=== PATIENT | female | born 1970 | race Caucasian/White ===

== ENCOUNTER 2018-08-27 16:28 | Emergency (ER) | payer MEDICAID, SELFPAY ==
--- NOTE | 2018-08-27 16:32 | W.ED.GENAD ---
Discharge Plan Disposition Patient Disposition: HOME Condition: Stable Discharge Details Chief Complaint: Chest Pain Clinical Impression: Chest pain Primary Care Provider: Saadia Santana V ED Provider: Srini Jones Home Meds and New Rx's Prescriptions: No Action aspirin [Children's Aspirin] 81 MG tablet,chewable 81 mg PO DAILY RF: 0 ibuprofen 800 MG tablet 800 mg PO TID PRNQty: 20 RF: 0 Discharge Instructions Instructions: Chest Pain (ED), Hypokalemia (ED) Additional Instructions: your blood work was normal other than your potassium being low. Try to increase your dietary intake of potassium Follow up with your primary care provider within a week. Have your potassium rechecked at that time and also discuss having a stress test if you feel your pain is worsening or you have difficulty breathing return to the emergency department Medical Decision Making 47 yo female who denies hx of smoking or prior medical problems, comes in with 3 days of constant chest pain. She describes it as a burning and sometimes a pressure, no apin with exertion or radiation of pain. NO sob, n/v, diarphoresis. She states laying flat makes it feel better. She has also had a cough recently. She does appear anxious on exam which could be contributing to the symptoms. Her heart score is 1, will obtain troponin. She is wells low and perc negative so doubt PE at this time pts labs show K of 2.9 otherwise unremarkable, xray unremarkable. Given 3 days of pain do not feel repeat troponin indicated. She is laughing and states no pain now. Will d/c and advised f/u with pcp return precautions given Differential Diagnosis nstemi, ptx, pna, gerd, anxiety Imaging Data Radiologic Study: Attestation: I personally reviewed and interpreted this imaging study as follows: Imaging: X-Ray Radiologist's impression: no acute findings Lab Data Lab results reviewed: Yes I reviewed the patient's lab results. ECG Data Attestation: I personally reviewed and interpreted this ECG (s) as follows: Prior ECG tracings: available for review Interpretation: sinus rhythm, rate of 85, pr 148, no acute st t wave ischemic changes HPI General Mode of arrival: ambulatory. Date/Time Provider Initiated Documentation: 08/27/18 16:30. Limitations to Documentation: no limitations. Information obtained by: patient. History of Present Illness 47 year old F presents to the emergency department with the chief complaint of chest pain, described as moderate, Quality is described as burning, and is localized to the chest. Patient reports no radiation. Patient started experiencing this day(s) (3) and it has been constant. No relieving factors improve symptom(s), Other factors that worsen symptoms (laying flat) . Patient notes cough. Patient did receive the following treatments prior to arrival, none Related Data Home Medications Medication Instructions Recorded Confirmed aspirin [Children's Aspirin] 81 mg PO DAILY 11/06/12 08/27/18 ibuprofen 800 mg PO TID PRN #20 tablet 07/04/13 08/27/18 Previous Rx's Medication Instructions Recorded ibuprofen 800 mg PO TID PRN #20 tablet 07/04/13 Allergies Allergy/AdvReac Type Severity Reaction Status Date / Time No Known Allergies Allergy Unverified 08/27/18 16:40 Review of Systems Review of Systems All systems reviewed & are unremarkable except as noted in HPI and below Constitutional Denies chills and Denies fever(s) Cardiovascular Denies dyspnea Respiratory Denies cough and Denies dyspnea Gastrointestinal Denies abdominal pain, Denies nausea and Denies vomiting Musculoskeletal Denies joint swelling Integumentary/Breasts Denies rash Endocrine Denies heat intolerance FOR[facility]LY [facility] Medical History Hyperlipidemia (Acute) Surgical History History of adenectomy (Acute) Social History Smoking/Tobacco Use Status: Never Drug use: Never Substance use type: does not use Do you feel safe at home: Yes Do you feel safe in your relationship?: Yes Exam Const General: anxious Orientation: alert HENNH Head: normal to inspection Ears: external ears normal General nose exam: external nose normal Mouth: moist mucous membranes Eyes General: appearance normal, both eyes and all related structures Neck Neck: normal visual inspection Resp Effort & Inspection: normal respiratory effort and able to speak in complete sentences Cardio Rate: regular rate Skin General skin exam: no rashes or lesions noted Neuro General: alert and oriented x3 Extrem General: normal to inspection Psych Mental Status: mental status grossly normal
[2018-08-27 16:35] VITALS: BP 151/71; PULSE 87; RESP 12; TEMP 37.3; O2SAT 95
[2018-08-27 16:40] VITALS: RESP 20
[2018-08-27 16:50] LABS: Abs Immature Grans 0.03 k/cumm (0.0-0.09); Absolute Basophil Count 0.04 k/cumm (0.0-0.2); Absolute Eosinophil Count 0.17 k/cumm (0.0-0.7); Absolute Lymphocyte Count 2.73 k/cumm (1.2-3.4); Absolute Monocyte Count 0.78 k/cumm (0.11-0.7); Absolute Neutrophil Count 7.42 k/cumm (1.2-6.7); Basophils % 0.4; Eosinophils % 1.5; HCT 39.2 % (36.0-46.0); HGB 13.2 g/dL (12.0-15.5); Immature Grans % 0.3; Lymphocytes % 24.4; Mean Corp. HGB Concentration 33.7 g/dL (32.0-36.0); Mean Corpuscular Hemoglobin 28.8 pg (27.0-33.0); Mean Corpuscular Volume 85.6 fL (80-95); Mean Platelet Volume 9.8 fL (8.0-11.0); Neutrophils % 66.4; Platelet Count 418 x1000/uL (130-400); RBC 4.58 m/cumm (4.00-5.20); RBC Distribution Width 12.1 % (11.7-14.6); White Blood Cell Count 11.17 k/cumm (4.4-10.8)
--- NOTE | 2018-08-27 16:56 | ED.GENADUL_ITS ---
Discharge Plan Disposition Patient Disposition: HOME Condition: Stable Discharge Details Chief Complaint: Chest Pain Clinical Impression: Chest pain Primary Care Provider: Saadia Santana V ED Provider: Srini Jones Home Meds and New Rx's Prescriptions: No Action aspirin [Children's Aspirin] 81 MG tablet,chewable 81 mg PO DAILY RF: 0 ibuprofen 800 MG tablet 800 mg PO TID PRNQty: 20 RF: 0 Discharge Instructions Instructions: Chest Pain (ED), Hypokalemia (ED) Additional Instructions: your blood work was normal other than your potassium being low. Try to increase your dietary intake of potassium Follow up with your primary care provider within a week. Have your potassium rechecked at that time and also discuss having a stress test if you feel your pain is worsening or you have difficulty breathing return to the emergency department Medical Decision Making 47 yo female who denies hx of smoking or prior medical problems, comes in with 3 days of constant chest pain. She describes it as a burning and sometimes a pressure, no apin with exertion or radiation of pain. NO sob, n/v, diarphoresis. She states laying flat makes it feel better. She has also had a cough recently. She does appear anxious on exam which could be contributing to the symptoms. Her heart score is 1, will obtain troponin. She is wells low and perc negative so doubt PE at this time pts labs show K of 2.9 otherwise unremarkable, xray unremarkable. Given 3 days of pain do not feel repeat troponin indicated. She is laughing and states no pain now. Will d/c and advised f/u with pcp return precautions given Differential Diagnosis nstemi, ptx, pna, gerd, anxiety Imaging Data Radiologic Study: Attestation: I personally reviewed and interpreted this imaging study as follows: Imaging: X-Ray Radiologist's impression: no acute findings Lab Data Lab results reviewed: Yes I reviewed the patient's lab results. ECG Data Attestation: I personally reviewed and interpreted this ECG (s) as follows: Prior ECG tracings: available for review Interpretation: sinus rhythm, rate of 85, pr 148, no acute st t wave ischemic ch anges HPI General Mode of arrival: ambulatory . Date/Time Provider Initiated Documentation: 08/27/18 16:30 . Limitations to Documentation: no limitations . Information obtained by: patient . History of Present Illness 47 year old F presents to the emergency department with the chief complaint of chest pain, described as moderate, Quality is described as burning, and is localized to the chest. Patient reports no radiation. Patient started experiencing this day(s) (3) and it has been constant. No relieving factors improve symptom(s), Other factors that worsen symptoms (laying flat) . Patient notes cough. Patient did receive the following treatments prior to arrival, none Related Data Home Medications Medication Instructions Recorded Confirmed aspirin [Children's Aspirin] 81 mg PO DAILY 11/06/12 08/27/18 ibuprofen 800 mg PO TID PRN #20 tablet 07/04/13 08/27/18 Previous Rx's Medication Instructions Recorded ibuprofen 800 mg PO TID PRN #20 tablet 07/04/13 Allergies Allergy/AdvReac Type Severity Reaction Status Date / Time No Known Allergies Allergy Unverified 08/27/18 16:40 Review of Systems Review of Systems All systems reviewed & are unremarkable except as noted in HPI and below Constitutional Denies chills and Denies fever(s) Cardiovascular Denies dyspnea Respiratory Denies cough and Denies dyspnea Gastrointestinal Denies abdominal pain, Denies nausea and Denies vomiting Musculoskeletal Denies joint swelling Integumentary/Breasts Denies rash Endocrine Denies heat intolerance FOR[facility]LY [facility] Medical History Hyperlipidemia (Acute) Surgical History History of adenectomy (Acute) Social History Smoking/Tobacco Use Status: Never Drug use: Never Substance use type: does not use Do you feel safe at home: Yes Do you feel safe in your relationship?: Yes Exam Const General: anxious Orientation: alert HENMT Head: normal to inspection Ears: external ears normal General nose exam: external nose normal Mouth: moist mucous membranes Eyes General: appearance normal, both eyes and all related structures Neck Neck: normal visual inspection Resp Effort & Inspection: normal respiratory effort and able to speak in complete sentences Cardio Rate: regular rate Skin General skin exam: no rashes or lesions noted Neuro General: alert and oriented x3 Extrem General: normal to inspection Psych Mental Status: mental status grossly normal
[2018-08-27 17:00] LABS: PTT Activated 21.1 sec (21.0-31.4); Prothrombin Time 10.2 sec (9.3-11.0)
[2018-08-27 17:02] LABS: ALT 25 U/L (12-78); AST 17 U/L (15-37); Albumin 3.5 g/dL (3.4-5.0); Alkaline Phosphatase 100 U/L (46-116); BUN 11 mg/dL (7-18); Bilirubin, Total 0.4 mg/dL (0.2-1.0); CREATININE 0.61 mg/dL (0.55-1.02); Calcium 8.7 mg/dL (8.5-10.1); Chloride 100 mmol/L (98-107); Glucose 106 mg/dL (70-100); Lipase 105 U/L (73-393); Magnesium 1.9 mg/dL (1.8-2.4); Sodium 136 mmol/L (136-145); Total Protein 8.3 g/dL (6.4-8.2)
[2018-08-27] MEDS: LORazepam 2 MG/ML VIAL 0.5 MG IVP (17:03)
--- NOTE | 2018-08-27 17:09 | DI.RAD_ITS ---
SYMPTOM/DIAGNOSIS: CHEST PAIN PA AND LATERAL CHEST: Comparison is made with 07/04/13. The heart size is within normal limits. The aorta is mildly tortuous. Leads overlie the chest. The lungs appear clear. IMPRESSION: No acute abnormality.
[2018-08-27 17:11] LABS: Troponin I < 0.02 ng/mL (0.00-0.06)
[2018-08-27 17:13] LABS: Potassium 2.9 mmol/L (3.5-5.1)
[2018-08-27] MEDS: Potassium Chloride 20 MEQ TABCR 40 MEQ PO (17:17)
[2018-08-27 17:23] VITALS: PULSE 84; RESP 18; O2SAT 97
--- NOTE | 2018-08-27 17:27 | DI.VRAD_ITS ---
EXAM: XR Chest, 2 Views EXAM DATE/TIME: 08/27/2018 4:50 PM CLINICAL HISTORY: 47 years old, female; Pain; Chest pain; On breathing; Patient HX: Chest pain on left. TECHNIQUE: Imaging protocol: XR of the chest, 2 views. COMPARISON: CR CHEST 2 VIEWS PA,LAT 07/04/2013 3:59 AM FINDINGS: Lungs: Unremarkable. No consolidation. Pleural space: Unremarkable. No pleural effusion. No pneumothorax. Heart/Mediastinum: Unremarkable. No cardiomegaly. Bones/joints: Negative for acute skeletal pathology. IMPRESSION: Negative for acute thoracic pathology. Dictated and Authenticated by: Himanshu David MD. Ordering:JESS Milligan MD
[2018-08-27 17:33] LABS: Diff Comment Diff Reviewed; RBC Morphology Normal
== END 2018-08-27 18:14 | disposition home or self-care (01) ==
PROVIDERS: Emergency Provider Emergency Medicine; PCP Family Medicine
DX: R07.9 Chest pain, unspecified (principal); Z87.891 Personal history of nicotine dependence
CPT/HCPCS: 36415; 80053; 80076; 83690; 93005; 96374; 99285; 71046; 83735; 84484; 85025; 85610; 85730; 93010; J2060; J3490

== ENCOUNTER 2020-05-03 16:14 | Emergency (ER) | payer MEDICAID, SELFPAY ==
[2020-05-03] VITALS (14 sets, daily range): BP systolic 97–140; BP diastolic 51–81; PULSE 83–122; RESP 17; TEMP 36.6–38.1; O2SAT 87–100
--- NOTE | 2020-05-03 16:44 | W.ED.GENAD ---
Discharge Plan Disposition Patient Disposition: HOME Condition: Stable Discharge Details Clinical Impression: Acute febrile illness Primary Care Provider: Nestor Blackwell ED Provider: Cassius Gunn Home Meds and New Rx's Prescriptions: New cephalexin [Keflex] 500 mg capsule 500 mg PO TID Qty: 18 RF: 0 Discharge Instructions Instructions: Cephalexin (By mouth), Urinary Tract Infection in Women (ED), Fever in Adults (ED), Hypokalemia (ED) Additional Instructions: Please drink plenty of clear fluids like Gatorade or Powerade in order to stay hydrated. Allow for plenty of rest over the next few days. Your urinalysis is inconclusive for urinary tract infection. You have been started on an antibiotic called Keflex. Be sure to take this antibiotic as prescribed. You have Covid test pending. Please maintain isolation at home until Covid test is resulted and negative. Please contact your primary care physician to arrange follow-up. Call your doctor tomorrow to arrange timely follow-up. Return to the ER immediately for any worsening or new concerning symptoms. Stand Alone Forms: PENDING COVID-19 TESTING Referrals: Nestor Blackwell PA [Primary Care Provider] - Discharge Data Discharge Date/Time-TO BE ENTERED AT DEPARTURE: 05/03/20 19:10 Medical Decision Making 1644??49-year-old female here with fever since last night, myalgias, fatigue. Patient is tachycardic and febrile. She appears dehydrated. No signs of focal bacterial infection on exam. Lungs are clear, she has no cough, she is saturating well and in no respiratory distress. No known exposure and low risk for Covid. Consider other etiologies including alternative viral illness, consider bacteremia and will send blood culture, consider tickborne disease she has had prior tick bites. I will check screening labs and give IV fluid bolus as well as acetaminophen IV. --Labs reviewed and leukocytosis noted. Lactate mildly elevated at 1.7. Potassium 3.2. Patient was given potassium 20 mEq orally. Mildly elevated LFTs. Tick panel pending. Covid testing pending. Blood cultures pending. Urinalysis is concerning for 20-60 WBCs, moderate bacteria, unfortunately contaminated with many epithelial cells. Patient received IV fluid bolus volume resuscitation. Heart rate significantly improved. Patient remained hemodynamically stable. On reassessment she noted continued fatigue but with stable. Consider urinary tract infection. Will attempt to obtain second urine specimen but will start Keflex. --Plan will be for outpatient follow-up with patient's PCP next week. She was encouraged to return for any worsening or new concerning symptoms. HPI General Mode of arrival: ambulatory. Date/Time Provider Initiated Documentation: 05/03/20 16:25. Limitations to Documentation: no limitations. Information obtained by: patient. 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 Patient notes flulike illness with myalgias and fever since yesterday evening. Yesterday morning she notes she felt fine. Symptoms now moderate with no modifiers. She last took ibuprofen around noon. No associated rash. No associated cough or shortness of breath. No headache. She has had some nausea and loose stool. No abdominal pain. Patient notes no recent tick bites this year but does note she has had significant tick bites last year. Related Data Home Medications Medication Instructions Recorded Confirmed cephalexin [Keflex] 500 mg PO TID #18 cap 05/03/20 Previous Rx's Medication Instructions Recorded cephalexin [Keflex] 500 mg PO TID #18 cap 05/03/20 Allergies Allergy/AdvReac Type Severity Reaction Status Date / Time No Known Allergies Allergy Unverified 08/27/18 16:40 General Stated Complaint: Fever TESFAYE: 3 Review of Systems All systems reviewed & are unremarkable except as noted in HPI and below Constitutional Constitutional: Reports body ache(s) and Reports fever(s) Respiratory Respiratory: Denies cough Integumentary/Breasts Skin/Breast: Denies rash FOR[facility]LY [facility] Medical History (Updated 05/03/20 @ 18:49 by Cassius Gunn MD) Hyperlipidemia Surgical History History of adenectomy Social History Smoking/Tobacco Use Status: Never Smoking risk assessment performed?: Yes Alcohol Intake: never Drug use: Never Substance use type: does not use Do you feel safe at home: Yes Do you feel safe in your relationship?: Yes Exam Const General: cooperative and no acute distress HENMT Mouth: mucous membranes dry Eyes Conjunctivae: normal conjunctivae Sclera: normal sclerae Neck Neck: trachea midline and supple Resp Auscultation: clear to auscultation bilaterally, no rales, no rhonchi and no wheezes Cardio Rate: tachycardic Rhythm: regular rhythm Heart Sounds: no murmurs GI Palpation: soft, not firm, no guarding, no masses, not rigid and nontender Skin General skin exam: no rashes or lesions noted Neuro General: patient alert, patient awake, patient oriented x3 and tone normal Extrem General: no edema Psych Appearance: grossly normal Mental Status: mental status grossly normal Course Vital Signs Vital signs: Vital Signs Temperature 38.1 C H 05/03/20 16:19 Pulse 122 H 05/03/20 16:19 Respiratory Rate 17 05/03/20 16:19 Blood Pressure 140/81 05/03/20 16:19 Pulse Oximetry 100 05/03/20 16:19 Temperature 38.1 C H 05/03/20 16:19 Temperature Source Temporal Artery Scan 05/03/20 16:19 Pulse 122 H 05/03/20 16:19 Respiratory Rate 17 05/03/20 16:19 Respiratory Effort Non-Labored 05/03/20 16:25 Blood Pressure 140/81 05/03/20 16:19 Blood Pressure Position Sitting 05/03/20 16:19 Pulse Oximetry 100 05/03/20 16:19 Oxygen Delivery Method Room Air 05/03/20 16:19 Oxygen Flow Rate 0 05/03/20 16:19 Pain Level 2 05/03/20 16:19 Lab/Test Results Lab/Test Results: 05/03/20 16:26 Blood Blood Culture - Pending 05/03/20 16:26 Blood Blood Culture - Pending
[2020-05-03 17:09] LABS: Abs Immature Grans 0.08 10^3/uL (0.0-0.06); Absolute Basophil Count 0.02 10^3/uL (0.0-0.2); Basophils % 0.1; HCT 36.9 % (36.0-46.0); HGB 12.1 g/dL (11.2-15.7); MCH 28.9 pg (27.0-33.0); MCHC 32.8 % (32.0-36.0); MCV 88.3 fL (80-95); MPV 10.1 fL (8.0-11.0); Nucleated RBC 0 %; Platelet Count 349 10^3/uL (130-400); RBC 4.18 10^6/uL (3.93-5.22); RDW 12.9 % (11.7-14.6); RDW-SD 41.7 fL; WBC 16.87 10^3/uL (4.4-10.8)
[2020-05-03] MEDS: ACETAMINOPHEN 1,000 MG/100 ML BTL 400 MG IVPB (17:12)
[2020-05-03 17:17] LABS: Lactate 1.7 mmol/L (0.6-1.4)
[2020-05-03 17:31] LABS: ALT 98 U/L (14-59); AST 51 U/L (15-37); Albumin 3.2 g/dL (3.4-5.0); Alkaline Phosphatase 125 U/L (46-116); Anion Gap 10.3 mmol/L (3-11); BUN 11 mg/dL (7-18); Bilirubin, Total 0.7 mg/dL (0.2-1.0); CO2 22.7 mmol/L (21.0-32.0); CREATININE 0.74 mg/dL (0.55-1.02); Calcium 8.3 mg/dL (8.5-10.1); Chloride 101 mmol/L (98-107); Glucose 111 mg/dL (74-106); Potassium 3.2 mmol/L (3.5-5.1); Sodium 134 mmol/L (136-145); Total Protein 7.9 g/dL (6.4-8.2)
[2020-05-03] MEDS: Lactated Ringers 1,000 ML 1000 ML IV (17:31)
[2020-05-03 17:39] LABS: Absolute Lymphocyte Count 1.86 10^3/uL (1.2-3.4); Absolute Monocyte Count 0.67 10^3/uL (0.1-0.8); Absolute Neutrophil Count 14.34 10^3/uL (1.2-6.7); Diff Comment Manual Differential; RBC Morphology Normal
[2020-05-03 17:52] LABS: Bilirubin Negative (Negative); Blood Small (Negative); Clarity Sl Cloudy (Clear); Glucose Negative (Negative); Ketones Negative (Negative); Leukocyte Esterase Small (Negative); Nitrite Negative (Negative); Specific Gravity 1.015 (1.005-1.025); Urobilinogen 0.2 EU/dL (Up TO 0.2)
[2020-05-03 18:21] LABS: Bacteria Moderate HPF (Negative); C & S Indicated? No/Sq. Contamination; Crystals Negative HPF (Negative); Epithelial Cells Many HPF (Negative); Mucus Negative (Negative); RBC 0-2 HPF (0-2); WBC 20-50 HPF (0-5)
[2020-05-03] MEDS: Cephalexin 500 MG CAP PO (19:03)
[2020-05-03] MEDS: Cephalexin 500 MG CAP, 2 CAPS/BTL PO (19:04)
[2020-05-03 19:18] LABS: Bilirubin Negative (Negative); Blood Small (Negative); Clarity Clear (Clear); Glucose Negative (Negative); Ketones Negative (Negative); Leukocyte Esterase Moderate (Negative); Nitrite Negative (Negative); Urobilinogen 0.2 EU/dL (Up TO 0.2); pH 6.5 (5-8)
[2020-05-03 19:28] LABS: Bacteria Few HPF (Negative); C & S Indicated? Yes; Crystals Negative HPF (Negative); Epithelial Cells Few HPF (Negative); Mucus Negative (Negative); Other Cells Few Transitional (Negative); RBC 0-2 HPF (0-2); WBC 20-50 HPF (0-5)
[2020-05-04 02:00] LABS: COVID-19 RT-PCR UVMMC Result Negative (Negative)
--- NOTE | 2020-05-04 08:33 | NUR.NOTE ---
Nursing Note: Attempted to call patient at phone number on file to notify of negative covid results, answer machine received. Left message for patient to contact us back.
--- NOTE | 2020-05-05 09:35 | NUR.NOTE ---
Nursing Note: [id number]---Message left on answering machine.
--- NOTE | 2020-05-05 12:20 | NUR.NOTE ---
Nursing Note: 1222--Kadi returned call--given negative Covid test result--states still feeling ill but is maintaining hydration--encouraged to see pcp if not better in a few days or return to ER at anytime if getting worse or has concerns. Kadi verbalizes understanding.
[2020-05-07 10:32] LABS: Lyme Ab w Rflx to Lyme Confirm Negative (Negative)
[2020-05-07 21:00] LABS: Anaplasma phagocytophilum Negative (Negative); B. miyamotoi PCR Negative (Negative); Babesia divergens/MO-1 Negative (Negative); Babesia duncani Negative (Negative); Babesia microti Negative (Negative); Ehrlichia chaffeensis Negative (Negative); Ehrlichia ewingii/canis Negative (Negative); Ehrlichia muris eauclairensis Negative (Negative)
== END 2020-05-03 19:10 | disposition home or self-care (01) ==
PROVIDERS: Emergency Provider Student in an Organized Health Care Education/Training Program; PCP Physician Assistant Medical
DX: E87.6 Hypokalemia (principal); B96.4 Proteus (mirabilis) (morganii) as the cause of diseases classified elsewhere; R50.9 Fever, unspecified; Z03.818 Encounter for observation for suspected exposure to other biological agents ruled out; M79.10 Myalgia, unspecified site; R74.01 Elevation of levels of liver transaminase levels; R74.8 Abnormal levels of other serum enzymes; N30.90 Cystitis, unspecified without hematuria
CPT/HCPCS: 36415; 80053; 87040; 87077; 87798; 96361; 96365; 99284; U0003; 81003; 81015; 83605; 85025; 86618; 87086; 87186; J0131

== ENCOUNTER 2020-05-14 22:20 | Outpatient (REF) | payer MEDICAID, SELFPAY | END 2020-05-14 22:40 | LOC: NCHCN 22:20 | PROVIDERS: PCP Physician Assistant Medical; Visit Provider Physician Assistant Medical | DX: N39.0 Urinary tract infection, site not specified (principal) | CPT/HCPCS: 87086 ==

== ENCOUNTER 2020-10-09 11:16 | Emergency (ER) | payer MEDICAID, SELFPAY ==
[2020-10-09 11:26] VITALS: BP 185/90; PULSE 91; RESP 16; TEMP 36.5; O2SAT 100
--- NOTE | 2020-10-09 13:15 | DI.US_ITS ---
Exam(s) US LOWER EXTREMITY VENOUS LT EXAM: US LOWER EXTREMITY VENOUS LT CLINICAL HISTORY: pain, prior remote dvt TECHNIQUE: Left lower extremity venous ultrasound performed using grayscale, color-flow, and spectra l Doppler analysis. COMPARISON: No exams were available for comparison FINDINGS: The left common femoral, femoral and popliteal veins demonstrate normal compressibility, augmentation , and color Doppler. The posterior tibial veins are patent. The saphenofemoral junction is unremarka ble. There is thrombus seen in the proximal left greater saphenous vein measuring 5 cm in length. I t lies 1 cm from the saphenofemoral junction. There is no evidence of a Bender cyst. The soft tissue s are unremarkable. IMPRESSION: 1. No DVT. 2. Superficial thrombophlebitis. 3. Results of this exam have been verbally communicated with provider. DATA REPOSITORY:
[2020-10-09 13:45] VITALS: RESP 16
--- NOTE | 2020-10-09 14:24 | ED.GENADUL_ITS ---
Discharge Plan Disposition Patient Disposition: HOME Condition: Stable Discharge Details Clinical Impression: Superficial thrombosis of left lower extremity Primary Care Provider: Nestor Blackwell ED Provider: Cassius Gunn Home Meds and New Rx's Prescriptions: New Eliquis 5 mg tablet See Rx Instructions .ROUTE .COMPLEX Qty: 72 RF: 0 Continued multivitamin Capsule 1 cap PO BID RF: 0 omega-3 fatty acids Capsule 1 cap PO BID RF: 0 Glucosamine Chondroitin 550-30-1 mg Capsule 3 cap PO DAILY RF: 0 vitamin D3-vitamin K2 250 mcg (10,000 unit)-45 mcg Capsule 1 cap PO DAILY RF: 0 Discharge Instructions Instructions: Deep Vein Thrombosis (ED), Deep Vein Thrombosis Prevention (ED) Additional Instructions: You have a superficial thrombus that is 1 cm from junction with a deep vein. Anticoagulation is recommended. You were started on Eliquis here in the emergency department. Please continue to take as prescribed. Prescription was sent to pharmacy. Please contact your primary care physician to arrange follow-up. Return to the ER for any worsening or new concerning symptoms. Referrals: Nestor Blackwell PA [Primary Care Provider] - Medical Decision Making 50-year-old female with prior history of remote DVT, not currently anticoagulated, here 1 day status post initial COVID-19 vaccine Materna with posterior medial left proximal upper leg pain. Patient is vascular intact distally. Ultrasound of the left lower extremity was interpreted by radiology: No DVT, superficial thrombophlebitis, there is thrombus seen in the proximal left greater saphenous vein measuring 5 cm and it lies 1 cm from the saphenofemoral junction. This superficial thrombus warrants treatment with anticoagulation. I will initiate treatment with Eliquis. We will check baseline labs to assess for thrombocytopenia given recent back pain although I think it would be unlikely related to recent vaccination. Platelets normal, coags normal. I called and spoke with the patient's primary care nurse practitioner and discussed the diagnostic findings and treatment plan. She will plan on arranging for follow-up with the patient. HPI General Mode of arrival: ambulatory . Date/Time Provider Initiated Documentation: 10/09/20 11:44 . Limitations to Documentation: no limitations . Information obtained by: patient . HPI Narrative: 50yo female presents with chief complaint of left lower extremity pain. Patient notes she woke up this morning with sensation of deep pain in her left medial posterior thigh that f eels like prior DVT that she had remotely and her right leg after an injury. She does have family history of DVTs. Patient denies associated rash. Pain is moderate. Patient notes that she got her first Materna COVID-19 vaccine in her left arm yesterday and developed pain and swelling of the left arm in the hours after injection. She denies swelling of her lips or tongue or difficulty breathing. No fever or cough. Related Data Home Medications Medication Instructions Recorded Confirmed Glucosamine Chondroitin 3 cap PO DAILY 10/09/20 10/09/20 apixaban [Eliquis] See Rx Instructions .ROUTE 10/09/20 .COMPLEX #72 tab multivitamin 1 cap PO BID 10/09/20 10/09/20 omega-3 fatty acids 1 cap PO BID 10/09/20 10/09/20 vitamin D3-vitamin K2 1 cap PO DAILY 10/09/20 10/09/20 Previous Rx's Medication Instructions Recorded apixaban [Eliquis] See Rx Instructions .ROUTE 10/09/20 .COMPLEX #72 tab Allergies Allergy/AdvReac Type Severity Reaction Status Date / Time No Known Allergies Allergy Unverified 10/09/20 11:33 General Stated Complaint: GenMedical TESFAYE: 3 Review of Systems All systems reviewed & are unremarkable except as noted in HPI and below Constitutional Constitutional: Denies fever(s) Respiratory Respiratory: Denies cough PFSH Medical History (Updated 10/09/20 @ 15:08 by Cassius Gunn MD) DVT (deep vein thrombosis) in Hyperlipidemia Surgical History History of adenectomy Social History Smoking/Tobacco Use Status: Never Smoking risk assessment performed?: Yes Alcohol Intake: never Drug use: Never Substance use type: does not use Do you feel safe at home: Yes Do you feel safe in your relationship?: Yes Exam Const General: cooperative and no acute distress HENMT Mouth: moist mucous membranes Eyes Sclera: normal sclerae Neck Neck: trachea midline Resp Auscultation: clear to auscultation bilaterally, no rales, no rhonchi and no wheezes Cardio Rate: regular rate and not tachycardic Rhythm: regular rhythm GI Palpation: soft, not firm, no guarding, no masses, not rigid and nontender Skin General skin exam: no rashes or lesions noted Neuro General: patient alert, patient awake, patient oriented x3 and tone normal Extrem General: no edema Left upper extremity: shoulder/upper arm (Injection site tender with no significant swelling or erythema) Left lower extremity: hip/thigh Details: tenderness Location: of the proximal upper leg (Exam performed with female nurse nursing assistants teacher present) Location: me dially and posteriorly; no swelling, no ecchymosis and no unusual warmth Psych Appearance: grossly normal Mental Status: mental status grossly normal Course Vital Signs Vital signs: Vital Signs Temperature 36.5 C 10/09/20 11:26 Pulse 91 H 10/09/20 11:26 Respiratory Rate 16 10/09/20 11:26 Blood Pressure 185/90 H 10/09/20 11:26 Pulse Oximetry 100 10/09/20 11:26 Temperature 36.5 C 10/09/20 11:26 Temperature Source Skin 10/09/20 11:26 Pulse 91 H 10/09/20 11:26 Respiratory Rate 16 10/09/20 13:45 Respiratory Effort Non-Labored 10/09/20 13:45 Respiratory Depth Normal 10/09/20 13:45 Respiratory Pattern Normal 10/09/20 13:45 Blood Pressure 185/90 H 10/09/20 11:26 Blood Pressure Position Sitting 10/09/20 11:26 Pulse Oximetry 100 10/09/20 11:26 Oxygen Delivery Method Room Air 10/09/20 11:26 Oxygen Flow Rate 0 10/09/20 11:26 Pain Level 4 10/09/20 11:26
[2020-10-09 14:28] VITALS: BP 153/86; PULSE 81; RESP 16; TEMP 37.1; O2SAT 97
[2020-10-09 14:36] LABS: Abs Immature Grans 0.04 10^3/uL (0.0-0.06); Absolute Basophil Count 0.06 10^3/uL (0.0-0.2); Absolute Eosinophil Count 0.17 10^3/uL (0.0-0.7); Absolute Lymphocyte Count 2.73 10^3/uL (1.2-3.4); Absolute Monocyte Count 0.79 10^3/uL (0.1-0.8); Absolute Neutrophil Count 7.31 10^3/uL (1.2-6.7); Basophils % 0.5; Eosinophils % 1.5; HCT 37.3 % (36.0-46.0); HGB 12.3 g/dL (11.2-15.7); Immature Grans % 0.4; Lymphocytes % 24.6; MCH 28.7 pg (27.0-33.0); MCV 87.1 fL (80-95); MPV 9.5 fL (8.0-11.0); Monocytes % 7.1; Neutrophils % 65.9; Nucleated RBC 0 %; Platelet Count 371 10^3/uL (130-400); RBC 4.28 10^6/uL (3.93-5.22); RDW 12.7 % (11.7-14.6); RDW-SD 40.5 fL
[2020-10-09 14:46] LABS: Prothrombin Time 9.8 sec (9.3-11.0)
[2020-10-09 14:48] LABS: ALT 49 U/L (14-59); AST 24 U/L (15-37); Albumin 3.3 g/dL (3.4-5.0); Alkaline Phosphatase 66 U/L (46-116); Anion Gap 9.9 mmol/L (3-11); BUN 20 mg/dL (7-18); Bilirubin, Total 0.4 mg/dL (0.2-1.0); CO2 24.1 mmol/L (21.0-32.0); CREATININE 0.6 mg/dL (0.55-1.02); Calcium 8.6 mg/dL (8.5-10.1); Chloride 108 mmol/L (98-107); Glucose 95 mg/dL (74-106); Potassium 4.3 mmol/L (3.5-5.1); Sodium 142 mmol/L (136-145); Total Protein 7.7 g/dL (6.4-8.2)
[2020-10-09] MEDS: Apixaban 5 MG TAB 10 MG PO (15:15)
== END 2020-10-09 15:20 | disposition home or self-care (01) ==
PROVIDERS: Emergency Provider Student in an Organized Health Care Education/Training Program; PCP Physician Assistant Medical
DX: I80.02 Phlebitis and thrombophlebitis of superficial vessels of left lower extremity (principal); Z86.718 Personal history of other venous thrombosis and embolism
CPT/HCPCS: 36415; 80053; 99284; 85025; 85610; 93971; 99285

== ENCOUNTER 2020-10-14 22:41 | Emergency (ER) | payer MEDICAID, SELFPAY ==
[2020-10-14 22:45] VITALS: BP 165/80; PULSE 106; RESP 20; TEMP 36.4; O2SAT 98
--- NOTE | 2020-10-14 22:59 | W.ED.GENAD ---
Discharge Plan Disposition Patient Disposition: HOME Condition: Good Discharge Details Clinical Impression: Arm pain, left Primary Care Provider: Nestor Blackwell ED Provider: Marc Stevens Home Meds and New Rx's Prescriptions: Continued multivitamin Capsule 1 cap PO BID RF: 0 omega-3 fatty acids Capsule 1 cap PO BID RF: 0 Glucosamine Chondroitin 550-30-1 mg Capsule 3 cap PO DAILY RF: 0 vitamin D3-vitamin K2 250 mcg (10,000 unit)-45 mcg Capsule 1 cap PO DAILY RF: 0 Eliquis 5 mg tablet See Rx Instructions .ROUTE .COMPLEX Qty: 72 RF: 0 Discharge Instructions Additional Instructions: At this time your exam is reassuring, and very limited bedside ultrasound shows no signs of a blood clot in your forearm. There is no evidence of hematoma or bleeding either. I suspect it may have been a component of a small muscle spasm or some residual irritation from your vaccine being in that arm. Please use heat or ice at home and stretch the area and massage the area. If you notice any worsening of your symptoms, or any new symptoms such as vomiting, diarrhea, fever, chills, shortness of breath, chest pain, numbness, weakness, or fainting , please return immediately to the emergency department for reevaluation. Please follow up with your primary care provider as soon as possible for reassessment and reevaluation. As always, it was a pleasure participating in your medical care today. Referrals: Nestor Blackwell PA [Primary Care Provider] - Medical Decision Making This is a very pleasant 50-year-old female with a past medical history of a DVT in the distant past, recently got her marrow donor vaccine in her left arm, just 4 days ago she developed a DVT in her lower extremity and was started on Eliquis. She has been taking this as directed. This evening just a few hours ago she developed a cramp and mild burning pain in a small localized area on her ventral forearm on the left. Out of concern for her recent blood clot she came to the ER for further assessment. She denies any trauma. She denies any numbness or tingling. She states that it feels slightly different than a cramp. No pain in her upper arm, elbow or wrist. She denies any chest pain or shortness of breath. No other complaints at this time. No other modifying factors. Physical exam demonstrates no significant abnormalities. No evidence of contusion, traumatic fracture, significant spasm, or neurovascular compromise. Negative Trousseau sign. Limited bedside ultrasound was performed there is no evidence of incompressibility or vascular flow compromise for any of the veins of the forearm or left upper extremity for that matter. Additionally there is no evidence of arterial aneurysm that I can appreciate or hematoma in the muscle. No evidence of abscess or infection. Exam is notably reassuring. Patient has no complaints of chest pain or shortness of breath whatsoever. She has been taking her anticoagulant as directed. At this time she is properly treated for a DVT anyway in conjunction with a negative exam and negative limited bedside ultrasound I see no indication for emergent imaging at this time. I did discuss with the patient that my ultrasound is limited in comparison to formal ultrasonography here, patient does understand this. At this time with no evidence of acute life-threatening etiology, or etiology requiring intervention I do feel that the patient be discharged. Recommend ice and heat for suspected spasm as a cause of her pain. Recommend Tylenol and stretching as well. Discussed red flags which to return. I have extensively reviewed the treatment plan and discharge instructions with the patient. I have addressed all patient concerns at this time. The patient was made aware of what symptoms to monitor for that would warrant a return to the emergency department. Discussed the plan with the patient, they demonstrate verbal understanding and agreement with our assessment and plan at this time. The documentation in this chart was dictated using [employer] dictation software. Please excuse any dictation errors. HPI General Date/Time Provider Initiated Documentation: 10/14/20 22:42. HPI Narrative: This is a very pleasant 50-year-old female with a past medical history of a DVT in the distant past, recently got her marrow donor vaccine in her left arm, just 4 days ago she developed a DVT in her lower extremity and was started on Eliquis. She has been taking this as directed. This evening just a few hours ago she developed a cramp and mild burning pain in a small localized area on her ventral forearm on the left. Out of concern for her recent blood clot she came to the ER for further assessment. She denies any trauma. She denies any numbness or tingling. She states that it feels slightly different than a cramp. No pain in her upper arm, elbow or wrist. She denies any chest pain or shortness of breath. No other complaints at this time. No other modifying factors Related Data Home Medications Medication Instructions Recorded Confirmed Eliquis See Rx Instructions .ROUTE 10/09/20 10/14/20 .COMPLEX #72 tab Glucosamine Chondroitin 3 cap PO DAILY 10/09/20 10/14/20 multivitamin 1 cap PO BID 10/09/20 10/14/20 omega-3 fatty acids 1 cap PO BID 10/09/20 10/14/20 vitamin D3-vitamin K2 1 cap PO DAILY 10/09/20 10/14/20 Previous Rx's Medication Instructions Recorded Eliquis See Rx Instructions .ROUTE 10/09/20 .COMPLEX #72 tab Allergies Allergy/AdvReac Type Severity Reaction Status Date / Time No Known Allergies Allergy Unverified 10/14/20 22:57 General Stated Complaint: Orthopedic TESFAYE: 2 Review of Systems All systems reviewed & are unremarkable except as noted in HPI and below PFSH Medical History DVT (deep vein thrombosis) in Hyperlipidemia Surgical History History of adenectomy Social History Smoking/Tobacco Use Status: Never Smoking risk assessment performed?: Yes Alcohol Intake: never Drug use: Never Substance use type: does not use Do you feel safe at home: Yes Do you feel safe in your relationship?: Yes Exam Narrative Exam Narrative: 1.Const: Well-nourished, Well-developed, appearing stated age 2.Eyes: PERRL, no conjunctival injection, and symmetrical lids. 3.ENT: Atraumatic external nose and ears. Moist MM. Neck: Symmetric, trachea midline, No thyromegaly. 4.CVS: +S1/S2, No murmurs or gallops. Peripheral pulses 2+ and equal in all extremities. Brisk capillary refill in all extremities. 5.RESP: Unlabored respiratory effort. Clear to auscultation bilaterally. No wheezes rales or rhonchi 6.GI: Soft, Nontender/Nondistended, No hepatosplenomegaly. No guarding or rebound. 7.MSK: Patient's left arm is notably unremarkable on exam, radial pulses normal, capillary refill normal throughout. Restricted movement. No mass, hematoma or contusion that I can appreciate. On the area of concern over the patient mid to distal left forearm there is no appreciable abnormality clinically. Bedside ultrasound was performed there is no evidence of clot or flow compromise for the radial vein ulnar vein median cubital vein median vein cephalic vein or basilic vein. Negative trousseau's sign 8.Skin: Warm, Dry. No rashes or lesions. 9.Neuro: bath tester II-XII grossly intact. Sensation grossly intact, no focal neurologic deficits. 10.Psych: (AAO) x3. Appropriate mood and affect Course Vital Signs Vital signs: Vital Signs Temperature 36.4 C L 10/14/20 22:45 Pulse 106 H 10/14/20 22:45 Respiratory Rate 20 10/14/20 22:45 Blood Pressure 165/80 H 10/14/20 22:45 Pulse Oximetry 98 10/14/20 22:45 Temperature 36.4 C L 10/14/20 22:45 Temperature Source Skin 10/14/20 22:45 Pulse 106 H 10/14/20 22:45 Respiratory Rate 20 10/14/20 22:45 Blood Pressure 165/80 H 10/14/20 22:45 Blood Pressure Position Sitting 10/14/20 22:45 Pulse Oximetry 98 10/14/20 22:45 Oxygen Delivery Method Room Air 10/14/20 22:45 Oxygen Flow Rate 0 10/14/20 22:45 Pain Level 7 10/14/20 22:45 Comment 10/14/20 22:45
== END 2020-10-14 23:05 | disposition home or self-care (01) ==
PROVIDERS: Emergency Provider Student in an Organized Health Care Education/Training Program; PCP Physician Assistant Medical
DX: R20.8 Other disturbances of skin sensation (principal); M79.602 Pain in left arm; Z86.718 Personal history of other venous thrombosis and embolism
CPT/HCPCS: 99282; 99283

== ENCOUNTER 2020-10-16 15:07 | Outpatient (REF) | payer MEDICAID, SELFPAY ==
[2020-10-16 16:05] LABS: C-Reactive Protein 0.45 mg/dL (0.0-0.3)
[2020-10-16 16:09] LABS: ESR 42 mm//hr (0-20)
[2020-10-16 21:59] LABS: Rheumatoid Factor <8.6 IU/mL (<12.0)
[2020-10-17 10:17] LABS: Cyclic Citrullinated Peptide <2.5 U/mL (<5.0)
[2020-10-17 11:43] LABS: Lyme Ab w Rflx to Lyme Confirm Negative (Negative)
[2020-10-17 13:28] LABS: ANA Interpretation Positive (Negative); ANA Titer Pattern 1:80 Homogeneous
[2020-10-18 21:39] LABS: Anaplasma phagocytophilum Negative (Negative); B. miyamotoi PCR Negative (Negative); Babesia divergens/MO-1 Negative (Negative); Babesia duncani Negative (Negative); Babesia microti Negative (Negative); Ehrlichia chaffeensis Negative (Negative); Ehrlichia ewingii/canis Negative (Negative); Ehrlichia muris eauclairensis Negative (Negative)
== END 2020-10-16 15:08 | disposition home or self-care (01) ==
LOC: NCHCN 15:07
PROVIDERS: PCP Physician Assistant Medical; Visit Provider Physician Assistant Medical
DX: M25.59 Pain in other specified joint (principal)
CPT/HCPCS: 85652; 86200; 87798; 86038; 86140; 86431; 86618

== ENCOUNTER 2020-11-02 14:00 | Emergency (ER) | payer MEDICAID, SELFPAY ==
[2020-11-02 14:05] VITALS: BP 158/91; PULSE 88; RESP 18; TEMP 36.7; O2SAT 99
--- NOTE | 2020-11-02 14:15 | DI.US_ITS ---
Exam(s) US LOWER EXTREMITY VENOUS RT EXAM: US LOWER EXTREMITY VENOUS RT CLINICAL HISTORY: R ankle swelling, r/o dvt. TECHNIQUE: Ultrasound performed using standard protocol. COMPARISON: US US LOWER EXTREMITY VENOUS LT from 10/09/2020 FINDINGS: Duplex venous ultrasound was performed according to the usual protocol. The deep veins are freely com pressible throughout and there is normal flow augmentation with manual calf compression. 2D and Doppl er evaluation are unremarkable. IMPRESSION: No evidence of deep venous thrombosis of the right lower extremity. DATA REPOSITORY:
--- NOTE | 2020-11-02 14:15 | DI.RAD_ITS ---
Exam(s) XR ANKLE RT COMPLETE EXAM: XR ANKLE RT COMPLETE CLINICAL HISTORY: R ankle swelling, r/o fx TECHNIQUE: COMPARISON: No exams were available for comparison FINDINGS: Three views were obtained. There are mild degenerative changes of the joints of the ankle and hindfo ot and there is prominent enthesophyte of the plantar fascia attachment on the calcaneus. The ankle mortise is well maintained. There are small ossicles adjacent to the tips of the medial an d lateral malleoli. There is no evidence of acute fracture or dislocation. IMPRESSION: RADIATION DOSE DELIVERED: Total DLP
--- NOTE | 2020-11-02 14:39 | W.ED.GENAD ---
Discharge Plan Disposition Patient Disposition: HOME Condition: Stable Discharge Details Clinical Impression: Right ankle swelling, Right ankle pain Primary Care Provider: Nestor Blackwell ED Provider: Janeth Eduardo Home Meds and New Rx's Prescriptions: New prednisone 20 mg tablet See Rx Instructions .ROUTE .COMPLEX Qty: 12 RF: 0 cephalexin 500 mg capsule 500 mg PO TID 5 Days Qty: 15 RF: 0 Continued multivitamin Capsule 1 cap PO BID RF: 0 omega-3 fatty acids Capsule 1 cap PO BID RF: 0 Glucosamine Chondroitin 550-30-1 mg Capsule 3 cap PO DAILY RF: 0 vitamin D3-vitamin K2 250 mcg (10,000 unit)-45 mcg Capsule 1 cap PO DAILY RF: 0 Eliquis 5 mg tablet See Rx Instructions .ROUTE .COMPLEX Qty: 72 RF: 0 Discharge Instructions Instructions: Ankle Sprain (ED), Swollen Ankle Joint (ED) Additional Instructions: Rest, ice, and elevate the affected area as much as possible. Take Tylenol as needed and directed for pain. Your prescription has been sent electronically to your pharmacy. Call the pharmacy to make sure your prescriptio is ready before pickup. Take the prescription as directed. Follow-up with your primary care doctor in 1 week. Return to the emergency department with any worsening or new concerning symptoms. Discharge Data Discharge Date/Time-TO BE ENTERED AT DEPARTURE: 11/02/20 16:06 Discharge Physician: Janeth Eduardo Medical Decision Making 50-year-old female little with a history of DVT on Eliquis and hyperlipidemia presents for right ankle pain and swelling since this morning. Denies fever or no injury. Patient appears slightly uncomfortable but nontoxic. Her right lateral malleolus is edematous and tender greater than her right medial malleolus. She is neurovascularly intact. Differential diagnosis includes ankle sprain, joint swelling in the setting of underlying rheumatologic condition such as lupus, rheumatoid arthritis. The area is not hot to touch without erythema and does not appear consistent with gout or cellulitis. Doubt fx without h/o injury. Right leg ultrasound negative for DVT. Right ankle x-ray negative. Delay in obtaining lab work due to poor peripheral access. Labs reviewed. White blood cell count 13.5. ESR minimally elevated at 48. CRP minimally elevated at 1.45. Although clinically she does not appear consistent with cellulitis, will cover with oral steroids and antibiotics. Patient denies any chance of and is declining test. Will give a dose of oral steroids and tramadol here and bottle of tramadol to go. Advised to follow up with the primary care doctor for re-evaluation. Usual and customary return precautions given prior to discharge. Medical Records Medical records reviewed: Yes I reviewed the patient's medical records. Imaging Data Radiologic Study: Radiologist's impression: US LOWER EXTREMITY VENOUS RT CLINICAL HISTORY: R ankle swelling, r/o dvt. TECHNIQUE: Ultrasound performed using standard protocol. COMPARISON: US US LOWER EXTREMITY VENOUS LT from 10/09/2020 FINDINGS: Duplex venous ultrasound was performed according to the usual protocol. The deep veins are freely compressible throughout and there is normal flow augmentation with manual calf compression. 2D and Doppler evaluation are unremarkable. IMPRESSION: No evidence of deep venous thrombosis of the right lower extremity. XR ANKLE RT COMPLETE CLINICAL HISTORY: R ankle swelling, r/o fx TECHNIQUE: COMPARISON: No exams were available for comparison FINDINGS: Three views were obtained. There are mild degenerative changes of the joints of the ankle and hindfoot and there is prominent enthesophyte of the plantar fascia attachment on the calcaneus. The ankle mortise is well maintained. There are small ossicles adjacent to the tips of the medial and lateral malleoli. There is no evidence of acute fracture or dislocation. Lab Data Lab results reviewed: Yes I reviewed the patient's lab results. Labs: Laboratory Tests Range/Units 11/02/20 11/02/20 11/02/20 15:20 15:20 15:20 WBC (4.4-10.8) 10^3/uL 13.57 H RBC (3.93-5.22) 10^6/uL 4.10 Hgb (11.2-15.7) g/dL 11.8 Hct (36.0-46.0) % 35.4 L MCV (80-95) fL 86.3 MCH (27.0-33.0) pg 28.8 MCHC (32.0-36.0) % 33.3 RDW (11.7-14.6) % 12.5 Plt Count (130-400) 10^3/uL 406 H MPV (8.0-11.0) fL 9.4 Immature Gran % 0.4 Neutrophils % 70.3 Lymphocytes % 19.2 Monocytes % 8.9 Eosinophils % 0.9 Basophils % 0.3 Nucleated RBC % % 0 Absolute Neutrophils (1.2-6.7) 10^3/uL 9.54 H Absolute Lymphocytes (1.2-3.4) 10^3/uL 2.61 Absolute Monocytes (0.1-0.8) 10^3/uL 1.21 H Absolute Eosinophils (0.0-0.7) 10^3/uL 0.12 Absolute Basophils (0.0-0.2) 10^3/uL 0.04 ESR (0-20) mm/hr 48 H C-Reactive Protein (0.0-0.3) mg/dL 1.45 H HPI General Mode of arrival: ambulatory. Date/Time Provider Initiated Documentation: 11/02/20 14:12. Limitations to Documentation: no limitations. Information obtained by: patient. HPI Narrative: Patient is a 50-year-old female with a history of hyperlipidemia and DVT of her extremity on Eliquis presents for right ankle swelling and pain since this morning. Patient states she went to bed last night without any symptoms and awoke with right ankle pain, swelling with increased pain with weightbearing. Patient states she has been having intermittent joint pain at times and has been worked up at [facility] for a possible diagnosis of lupus. Patient states she has seen rheumatology in January for further evaluation of this. Patient denies any fever. 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 but does not recall any injury Related Data Home Medications Medication Instructions Recorded Confirmed Eliquis See Rx Instructions .ROUTE 10/09/20 11/02/20 .COMPLEX #72 tab Glucosamine Chondroitin 3 cap PO DAILY 10/09/20 11/02/20 multivitamin 1 cap PO BID 10/09/20 11/02/20 omega-3 fatty acids 1 cap PO BID 10/09/20 11/02/20 vitamin D3-vitamin K2 1 cap PO DAILY 10/09/20 11/02/20 cephalexin 500 mg PO TID 5 Days #15 cap 11/02/20 prednisone See Rx Instructions .ROUTE 11/02/20 .COMPLEX #12 tab Previous Rx's Medication Instructions Recorded Eliquis See Rx Instructions .ROUTE 10/09/20 .COMPLEX #72 tab cephalexin 500 mg PO TID 5 Days #15 cap 11/02/20 prednisone See Rx Instructions .ROUTE 11/02/20 .COMPLEX #12 tab Allergies Allergy/AdvReac Type Severity Reaction Status Date / Time No Known Allergies Allergy Unverified 11/02/20 14:09 General Stated Complaint: Orthopedic TESFAYE: 4 Review of Systems All systems reviewed & are unremarkable except as noted in HPI and below Constitutional Constitutional: Reports as per HPI, Denies chills and Denies fever(s) Eyes Eyes: Denies blurry vision ENT Ears, Nose, Mouth, and Throat: Denies dizziness, Denies sore throat and Denies throat swelling Cardiovascular Cardiovascular: Denies chest pain and Denies dyspnea Respiratory Respiratory: Denies cough and Denies dyspnea Gastrointestinal Gastrointestinal: Denies abdominal pain, Denies diarrhea and Denies vomiting Genitourinary Genitourinary: Denies hematuria and Denies dysuria Musculoskeletal Musculoskeletal: Denies back pain and Denies numbness Integumentary/Breasts Skin/Breast: Denies lesions and Denies rash Neurologic Neurologic: Denies dizziness, Denies localized weakness and Denies numbness Allergic/Immunologic Allergic/Immunologic: Denies throat swelling PFSH Medical History DVT (deep vein thrombosis) in Hyperlipidemia Surgical History History of adenectomy Social History Smoking/Tobacco Use Status: Never Smoking risk assessment performed?: Yes Alcohol Intake: never Drug use: Never Substance use type: does not use Do you feel safe at home: Yes Do you feel safe in your relationship?: Yes Exam Const General: cooperative and no acute distress HENHI Head: normal to inspection Mouth: oral mucosae normal Eyes General: appearance normal, both eyes and all related structures Neck Neck: normal visual inspection Resp Effort & Inspection: normal respiratory effort and able to speak in complete sentences Cardio Rate: regular rate Skin General skin exam: no rashes or lesions noted Neuro General: patient alert, patient awake and patient oriented x3 Motor: muscle tone normal throughout Extrem Ankle/foot/toe images: 1. Moderate edema and tenderness overlying right lateral malleolus 2. Mild edema and tenderness to right medial malleolus. Other: There is no erythema, crepitus or deformity noted to her right ankle or foot. There is no right fifth metatarsal tenderness. Right DP/PT pulses intact. Psych Appearance: grossly normal Affect: normal affect Course Vital Signs Vital signs: Vital Signs Temperature 98.1 F 11/02/20 14:05 Pulse 88 11/02/20 14:05 Respiratory Rate 18 11/02/20 14:05 Blood Pressure 158/91 H 11/02/20 14:05 Pulse Oximetry 99 11/02/20 14:05 Temperature 98.1 F 11/02/20 14:05 Temperature Source Skin 11/02/20 14:05 Pulse 88 11/02/20 14:05 Respiratory Rate 18 11/02/20 14:05 Respiratory Effort Non-Labored 11/02/20 14:10 Blood Pressure 158/91 H 11/02/20 14:05 Blood Pressure Position Sitting 11/02/20 14:05 Pulse Oximetry 99 11/02/20 14:05 Oxygen Delivery Method Room Air 11/02/20 14:05 Oxygen Flow Rate 0 11/02/20 14:05 Pain Level 9 11/02/20 14:05
[2020-11-02 15:38] LABS: Abs Immature Grans 0.06 10^3/uL (0.0-0.06); Absolute Basophil Count 0.04 10^3/uL (0.0-0.2); Absolute Eosinophil Count 0.12 10^3/uL (0.0-0.7); Absolute Monocyte Count 1.21 10^3/uL (0.1-0.8); Absolute Neutrophil Count 9.54 10^3/uL (1.2-6.7); Basophils % 0.3; Eosinophils % 0.9; HCT 35.4 % (36.0-46.0); HGB 11.8 g/dL (11.2-15.7); Immature Grans % 0.4; Lymphocytes % 19.2; MCH 28.8 pg (27.0-33.0); MCHC 33.3 % (32.0-36.0); MCV 86.3 fL (80-95); MPV 9.4 fL (8.0-11.0); Monocytes % 8.9; Neutrophils % 70.3; Nucleated RBC 0 %; Platelet Count 406 10^3/uL (130-400); RDW 12.5 % (11.7-14.6); RDW-SD 39.1 fL; WBC 13.57 10^3/uL (4.4-10.8)
[2020-11-02 15:39] LABS: Absolute Lymphocyte Count 2.61 10^3/uL (1.2-3.4); ESR 48 mm/hr (0-20)
[2020-11-02 15:46] LABS: C-Reactive Protein 1.45 mg/dL (0.0-0.3)
[2020-11-02] MEDS: traMADol 50 MG TAB PO (15:55)
[2020-11-02] MEDS: predniSONE 20 MG TAB 60 MG PO (15:55)
--- NOTE | 2020-11-02 16:00 | NUR.NOTE ---
Nursing Note: HIPOLITO WRAP APPLIED TO RIGHT ANKLE. PT TOLERATED WELL. IN NAD. +CMS TO RIGHT LOWER EXT.
== END 2020-11-02 16:06 | disposition home or self-care (01) ==
PROVIDERS: Emergency Provider Physician Assistant; PCP Physician Assistant Medical
DX: M25.571 Pain in right ankle and joints of right foot (principal); R22.41 Localized swelling, mass and lump, right lower limb
CPT/HCPCS: 85652; 99284; 73610; 85025; 86140; 93971; 99283; J7512

== ENCOUNTER 2020-11-12 09:33 | Outpatient (REF) | payer MEDICAID, SELFPAY ==
--- NOTE | 2020-11-12 08:00 | PAPFT_PTH ---
PATIENT: Kadi Fischer [facility] U[id number] AGE/SX: 50/F ROOM: RE11/12/[address]: Nestor Blackwell : 1970 BED: DIS: 11/12/2020 SPEC #: [id number] RECD: 11/12/20 17:59 STATUS: KEVIN REJesenia #: [id number] CATHRYN: 11/12/20 08:[address]: Nestor Blackwell DEPT: [facility] Cytology RECD BY: Katie Park Tissues: 1 - CX/ENDOCX FOR PAP SMEARS Procedures: PAP THIN PREP/UVM Screening HPV DNA PROBE Comments: [id number]
[2020-11-12 15:38] LABS: Calculated LDL 153 mg/dL (<100); Cholesterol 234 mg/dL (<200); HDL Cholesterol 72 mg/dL (40-60); TSH (W/Ref FT4) 2.34 uIU/mL (0.36-3.74); Triglyceride 48 mg/dL (<150)
[2020-11-12 16:11] LABS: Uric Acid 4.7 mg/dL (2.6-6.0)
== END 2020-11-12 09:34 | disposition home or self-care (01) ==
LOC: NCHCN 09:33
PROVIDERS: PCP Physician Assistant Medical; Visit Provider Physician Assistant Medical
DX: M25.571 Pain in right ankle and joints of right foot (principal); E78.5 Hyperlipidemia, unspecified; Z12.4 Encounter for screening for malignant neoplasm of cervix; Z11.51 Encounter for screening for human papillomavirus (HPV)
CPT/HCPCS: 80061; 88142; 84443; 84550; 87624

== ENCOUNTER 2020-11-27 01:21 | Outpatient (CLI) | payer MEDICAID, SELFPAY ==
--- NOTE | 2020-11-27 15:23 | DI.MAMMO_ITS ---
Exam(s) MAMMO SCREENING EXAM: MAMMO SCREENING CLINICAL HISTORY: SCREENING, HEALTH MAINTENANCE EXAM, Z00.8 TECHNIQUE: Mammograms were interpreted according to the usual protocol including computer analysis w [employer] CAD system, tomosynthesis and C-view imaging. COMPARISON: FINDINGS: The breasts are of moderate density with fairly symmetrical distribution of fibroglandular tissue. N o dominant mass or clumped microcalcification is identified in either breast. The current examinatio n is compared with previous examinations including December 2012 and there has been no gross interval philip nge in appearance in comparison with the prior studies. IMPRESSION: No specific evidence of malignancy at this time. Routine screening examinations are suggested at yea rly intervals due to the family history of breast carcinoma. BI-RADS Category 1 - Negative Breast Density - Category B - Scattered areas of fibroglandular density
== END 2020-11-27 01:41 ==
PROVIDERS: PCP Physician Assistant Medical; Visit Provider Physician Assistant Medical
DX: Z12.31 Encounter for screening mammogram for malignant neoplasm of breast (principal); Z80.3 Family history of malignant neoplasm of breast
CPT/HCPCS: 77063; 77067

== ENCOUNTER 2022-06-25 19:17 | Outpatient (REF) | payer MEDICAID, SELFPAY ==
[2022-06-25 23:05] LABS: ALT 27 U/L (14-59); AST 21 U/L (15-37); Albumin 3.5 g/dL (3.4-5.0); Alkaline Phosphatase 71 U/L (46-116); Anion Gap 9.3 mmol/L (3-11); BUN 18 mg/dL (7-18); Bilirubin, Total 0.3 mg/dL (0.2-1.0); CO2 25.7 mmol/L (21.0-32.0); CREATININE 0.6 mg/dL (0.55-1.02); Calculated LDL 175 mg/dL (<100); Chloride 102 mmol/L (98-107); Cholesterol 273 mg/dL (<200); Estimated GFR 109.28 (mL/min/1.73m2); Glucose 101 mg/dL (74-106); HDL Cholesterol 84 mg/dL (40-60); Potassium 3.8 mmol/L (3.5-5.1); Sodium 137 mmol/L (136-145); TSH (W/Ref FT4) 2.43 uIU/mL (0.36-3.74); Total Protein 7.8 g/dL (6.4-8.2); Triglyceride 70 mg/dL (<150)
[2022-06-26 14:55] LABS: Hemoglobin A1C 5.7 % (<5.7)
== END 2022-06-25 19:18 | disposition home or self-care (01) ==
LOC: NCHCN 19:17
PROVIDERS: PCP Physician Assistant Medical; Visit Provider Physician Assistant Medical
DX: E78.5 Hyperlipidemia, unspecified (principal); E66.8 Other obesity; R73.09 Other abnormal glucose
CPT/HCPCS: 80053; 80061; 83036; 84443

== ENCOUNTER 2022-11-26 14:21 | Outpatient (CLI) | payer MEDICAID, SELFPAY ==
--- NOTE | 2022-11-26 | DI.US_ITS ---
Exam(s) US LOWER EXTREMITY VENOUS LT EXAM: US LOWER EXTREMITY VENOUS LT CLINICAL HISTORY: HX DVT Z86.718 PAIN SWELLING LEFT LEG, R/O DVT TECHNIQUE: Left lower extremity venous ultrasound performed using grayscale, color-flow, and spectra l Doppler analysis. COMPARISON: US US LOWER EXTREMITY VENOUS LT from 10/09/2020 FINDINGS: The left common femoral, femoral and popliteal veins demonstrate normal compressibility, augmentation , and color Doppler. The posterior tibial and peroneal veins are patent. The saphenofemoral junction is unremarkable. There is no evidence of a Bender cyst. The soft tissues are unremarkable. IMPRESSION: No evidence of a left lower extremity DVT. DATA REPOSITORY:
== END 2022-11-26 14:41 ==
LOC: DI 14:24
PROVIDERS: PCP Physician Assistant Medical; Visit Provider Physician Assistant Medical
DX: Z86.718 Personal history of other venous thrombosis and embolism (principal)
CPT/HCPCS: 93971

== ENCOUNTER 2022-11-26 16:12 | Outpatient (CLI) | payer MEDICAID, SELFPAY ==
[2022-11-26 15:27] LABS: Abs Immature Grans 0.04 10^3/uL (0.0-0.06); Absolute Basophil Count 0.08 10^3/uL (0.0-0.2); Absolute Eosinophil Count 0.15 10^3/uL (0.0-0.7); Absolute Lymphocyte Count 2.69 10^3/uL (1.2-3.4); Absolute Monocyte Count 0.92 10^3/uL (0.1-0.8); Basophils % 0.7; Eosinophils % 1.3; HCT 37.1 % (36.0-46.0); HGB 12.1 g/dL (11.2-15.7); Immature Grans % 0.4; Lymphocytes % 23.6; MCH 28.1 pg (27.0-33.0); MCHC 32.6 % (32.0-36.0); MCV 86 fL (80-95); MPV 9.1 fL (8.0-11.0); Monocytes % 8.1; Neutrophils % 65.9; Platelet Count 408 10^3/uL (130-400); RDW 13.2 % (11.7-14.6); RDW-SD 41.4 fL; WBC 11.38 10^3/uL (4.4-10.8)
[2022-11-26 16:04] LABS: ALT 43 U/L (14-59); AST 24 U/L (15-37); Albumin 3.2 g/dL (3.4-5.0); Alkaline Phosphatase 79 U/L (46-116); Anion Gap 6.9 mmol/L (3-11); BUN 13 mg/dL (7-18); Bilirubin, Total 0.4 mg/dL (0.2-1.0); CO2 28.1 mmol/L (21.0-32.0); CREATININE 0.7 mg/dL (0.55-1.02); Calcium 8.8 mg/dL (8.5-10.1); Chloride 102 mmol/L (98-107); Estimated GFR 104.65 (mL/min/1.73m2); Glucose 88 mg/dL (74-106); NT-proBNP 195 pg/mL (<300); Potassium 3.8 mmol/L (3.5-5.1); Sodium 137 mmol/L (136-145); Total Protein 7.7 g/dL (6.4-8.2)
[2022-11-28 12:16] LABS: Lyme Ab w Rflx to Lyme Confirm Negative (Negative)
[2022-11-30 17:52] LABS: Anaplasma phagocytophilum Negative (Negative); B. miyamotoi PCR Negative (Negative); Babesia divergens/MO-1 Negative (Negative); Babesia duncani Negative (Negative); Babesia microti Negative (Negative); Ehrlichia chaffeensis Negative (Negative); Ehrlichia ewingii/canis Negative (Negative); Ehrlichia muris eauclairensis Negative (Negative)
== END 2022-11-26 16:13 | disposition home or self-care (01) ==
LOC: LBO 16:13
PROVIDERS: PCP Physician Assistant Medical; Visit Provider Physician Assistant Medical
DX: M79.662 Pain in left lower leg (principal); R60.0 Localized edema
CPT/HCPCS: 36415; 80053; 87798; 83880; 85025; 86618

== ENCOUNTER 2022-12-16 16:34 | Outpatient (REF) | payer MEDICAID, SELFPAY ==
[2022-12-16 20:13] LABS: ESR 61 mm/hr (0-30)
[2022-12-16 22:15] LABS: C-Reactive Protein 1.77 mg/dL (0.0-0.3); Uric Acid 6.1 mg/dL (2.6-6.0)
== END 2022-12-16 16:35 | disposition home or self-care (01) ==
LOC: NCHCN 16:34
PROVIDERS: PCP Physician Assistant Medical; Visit Provider Physician Assistant Medical
DX: M25.572 Pain in left ankle and joints of left foot (principal); R70.0 Elevated erythrocyte sedimentation rate
CPT/HCPCS: 85652; 84550; 86140

== ENCOUNTER 2022-12-16 17:37 | Outpatient (CLI) | payer MEDICAID, SELFPAY ==
--- NOTE | 2022-12-16 14:23 | DI.RAD_ITS ---
Exam(s) XR ANKLE LT COMPLETE EXAM: XR ANKLE LT COMPLETE CLINICAL HISTORY: LEFT ANKLE PAIN M25.572. TECHNIQUE: 2D digital imaging was performed. COMPARISON: CR XR ANKLE RT COMPLETE from 11/02/2020 FINDINGS: 3 views There is prominent soft tissue swelling over the foot and ankle. No evidence of acute fracture nor widening of the ankle mortise. However, there is some asymmetric n arrowing of the medial aspect of the tibiotalar joint. The subtalar joint appears unremarkable. Sma ll inferior calcaneal spur noted. No osseous tarsal coalition evident. IMPRESSION: Prominent soft tissue swelling of the foot and ankle. No acute fractures evident. Degenerative narr owing of the medial aspect of the tibiotalar joint noted. DATA REPOSITORY: RADIATION DOSE DELIVERED:
== END 2022-12-16 17:57 ==
LOC: DI 17:38
PROVIDERS: PCP Physician Assistant Medical; Visit Provider Physician Assistant Medical
DX: M25.572 Pain in left ankle and joints of left foot (principal); M77.32 Calcaneal spur, left foot; M79.89 Other specified soft tissue disorders
CPT/HCPCS: 73610

== ENCOUNTER 2023-11-15 14:48 | Emergency (ER) | payer MEDICAID, SELFPAY ==
[2023-11-15 14:52] VITALS: BP 212/101; PULSE 106; RESP 20; TEMP 36.6; O2SAT 93
--- NOTE | 2023-11-15 15:10 | W.ED.GENAD ---
Discharge Plan Disposition Patient Disposition: Home Condition: Stable Discharge Details Clinical Impression: Leg swelling Primary Care Provider: Nestor Blackwell ED Provider: Srini Jones Home Meds and New Rx's Prescriptions: New Eliquis DVT-PE Treat 30D Start 5 mg (74 tabs) tablets,dose pack See Rx Instructions .ROUTE .COMPLEX Qty: 74 0RF Rx Instructions: orally per package directions Continued meloxicam 15 mg tablet 15 mg PO DAILY Qty: 30 0RF celecoxib [Celebrex] 200 mg capsule 200 mg PO BID acetylcysteine [NAC] 600 mg capsule 600 mg PO DAILY duloxetine [Cymbalta] 30 mg capsule,delayed release(DR/EC) 30 mg PO DAILY Victoza 2-Twin 0.6 mg/0.1 mL (18 mg/3 mL) pen injector 1.8 mg subcut Q24H multivitamin Capsule 1 cap PO BID omega-3 fatty acids Capsule 1 cap PO BID vitamin D3-vitamin K2 250 mcg (10,000 unit)-45 mcg Capsule 1 cap PO DAILY Discharge Instructions Additional Instructions: Take your first dose of Eliquis tonight and then another dose tomorrow morning. If your ultrasound tomorrow is positive you can fill your paper prescription for Eliquis. Follow-up with your primary care provider If you feel more ill or have new symptoms such as severe chest pain or difficulty breathing return to the emergency department HPI General Date/Time Provider Initiated Documentation: 11/15/23 14:53. Limitations to Documentation: no limitations. Information obtained by: patient. History of Present Illness 53 year old F presents to the emergency department with the chief complaint of leg swelling, described as moderate, Patient started experiencing this month(s) (1) and it has been constant. No relieving factors improve symptom(s), No exacerbating factors reported . Patient notes denies chest pain, fever/chills and shortness of breath. Patient did receive the following treatments prior to arrival, none Related Data Home Medications Medication Instructions Recorded Confirmed multivitamin 1 cap PO BID 10/09/20 12/01/20 omega-3 fatty acids 1 cap PO BID 10/09/20 12/01/20 vitamin D3 250 mcg (10,000 1 cap PO DAILY 10/09/20 12/01/20 unit)-vitamin K2 45 mcg capsule meloxicam 15 mg tablet 15 mg PO DAILY #30 tabs 11/29/20 11/29/20 acetylcysteine 600 mg capsule (NAC) 600 mg PO DAILY 10/03/22 celecoxib 200 mg capsule (Celebrex) 200 mg PO BID 10/03/22 duloxetine 30 mg capsule,delayed 30 mg PO DAILY 10/03/22 release (Cymbalta) liraglutide 0.6 mg/0.1 mL (18 mg/3 1.8 mg subcut Q24H 10/03/22 mL) subcutaneous pen injector (Victoza 2-Twin) apixaban 5 mg (74 tabs) tablets in See Rx Instructions PO .COMPLEX 11/15/23 a dose pack (Eliquis DVT-PE Treat #74 dose pk 30D Start) Previous Rx's Medication Instructions Recorded meloxicam 15 mg tablet 15 mg PO DAILY #30 tabs 11/29/20 apixaban 5 mg (74 tabs) tablets in See Rx Instructions PO .COMPLEX 11/15/23 a dose pack (Eliquis DVT-PE Treat #74 dose pk 30D Start) Allergies Allergy/AdvReac Type Severity Reaction Status Date / Time simvastatin [From Zocor] Allergy Intermediate Other (See Verified 11/15/23 14:59 Comment) General Stated Complaint: Vascular TESFAYE: 3 Review of Systems All systems reviewed & are unremarkable except as noted in HPI and below Constitutional Constitutional: Denies chills, Denies fever(s) and Denies weakness ENT Ears, Nose, Mouth, and Throat: Denies change in voice Cardiovascular Cardiovascular: Denies chest pain and Denies dyspnea Respiratory Respiratory: Denies cough and Denies dyspnea Gastrointestinal Gastrointestinal: Denies abdominal pain, Denies nausea and Denies vomiting Neurologic Neurologic: Denies weakness Exam Const General: no acute distress Orientation: alert [facility] Head: normal to inspection Ears: external ears normal General nose exam: external nose normal Mouth: moist mucous membranes Eyes General: appearance normal, both eyes and all related structures Neck Neck: normal visual inspection Resp Effort & Inspection: normal respiratory effort and able to speak in complete sentences Cardio Rate: regular rate Skin General skin exam: no rashes or lesions noted Neuro General: patient alert and patient oriented x3 Extrem General: full ROM and capillary refill normal Psych Mental Status: mental status grossly normal Course Vital Signs Vital signs: Vital Signs Temperature 36.6 C 11/15/23 14:52 Pulse 106 H 11/15/23 14:52 Respiratory Rate 20 11/15/23 14:52 Blood Pressure 212/101 H 11/15/23 14:52 Pulse Oximetry 93 11/15/23 14:52 Temperature 36.6 C 11/15/23 14:52 Pulse 106 H 11/15/23 14:52 Respiratory Rate 20 11/15/23 14:52 Blood Pressure 212/101 H 11/15/23 14:52 Pulse Oximetry 93 11/15/23 14:52 Oxygen Delivery Method Room Air 11/15/23 14:52 Oxygen Flow Rate 0 11/15/23 14:52 Pain Level 2 11/15/23 14:52 Comment pain increases with bending or weight bearing 11/15/23 14:52 Medical Decision Making 53-year-old female with a history of prior DVTs last being of years ago, with no recent immobilization, comes in with 1 month of bilateral lower leg swelling at the ankles and distal tibias and for 2 days has had a discomfort behind the left calf and knee. Denies any falls or trauma, no fevers or chills, no chest pain or shortness of breath, states she feels well otherwise. She is alert and speaking clearly on arrival, does appear mildly anxious and her blood pressure is noted to be 200. She clear lung sounds, she does have swelling of both legs with pitting edema at the ankles and proximal distal tibia, no tenderness on the right calf but does have some tenderness behind the left calf and left knee. No rashes or erythema or warmth, full range of motion of the ankle and knee. Intact distal sensation and pulses. Suspect lymphedema versus possible DVT in the left leg, will obtain a CBC, CMP to check her kidney function. Given lack of chest pain or shortness of breath do not feel workup for heart failure indicated. There is no ultrasound capability today as it is Thursday, will order D-dimer to screen for DVT. Patient feels better, BP 160/80 now. Labs unremarkable other than D-dimer over 1000. Discussed results with patient, discussed risk benefits of initiating Eliquis until she can have ultrasound done tomorrow and given she tolerated Eliquis in the past without issues will give her a 10 mg dose to go home with tonight and a 10 mg dose to go home with tomorrow. Will have her have an ultrasound done tomorrow and it is positive we will provide her a paper prescription to have filled for 1 month supply of Eliquis. She will follow-up with her PCP return precautions given Differential Diagnosis Differential Diagnosis: DVT, lymphedema Lab Data Lab results reviewed: Yes I reviewed the patient's lab results. Quality:SDOH Health Related Social Needs: No Data to Display PFSH All Active Problems (Updated 11/15/23 @ 16:34 by Srini Jones MD) Leg swelling (Acute) Posterior tibial tendon dysfunction, right (Acute) Polyarthralgia (Acute) Superficial thrombosis of left lower extremity (Acute) Arm pain, left (Acute) Right ankle swelling (Acute) Right ankle pain (Acute) Medical History DVT (deep vein thrombosis) in Hyperlipidemia Polyarthralgia Surgical History History of adenectomy Social History Smoking/Tobacco Use Status: Never Smoking risk assessment performed?: Yes Alcohol Intake: never Drug use: Never Substance use type: does not use Do you feel safe at home: Yes Do you feel safe in your relationship?: Yes
[2023-11-15 15:32] LABS: Abs Immature Grans 0.09 10^3/uL (0.0-0.06); Absolute Basophil Count 0.06 10^3/uL (0.0-0.2); Absolute Eosinophil Count 0.21 10^3/uL (0.0-0.7); Absolute Lymphocyte Count 2.26 10^3/uL (1.2-3.4); Absolute Monocyte Count 0.95 10^3/uL (0.1-0.8); Basophils % 0.5 %; Eosinophils % 1.7 %; HGB 12.4 g/dL (11.2-15.7); Immature Grans % 0.7 %; Lymphocytes % 18.6 %; MCH 28.1 pg (27.0-33.0); MCHC 31.8 % (32.0-36.0); MCV 88 fL (80-95); MPV 9.2 fL (8.0-11.0); Monocytes % 7.8 %; Neutrophils % 70.7 %; Platelet Count 370 10^3/uL (130-400); RBC 4.42 10^6/uL (3.93-5.22); RDW 13.6 % (11.7-14.6); RDW-SD 44.1 fL; WBC 12.13 10^3/uL (4.4-10.8)
[2023-11-15 15:34] LABS: Absolute Neutrophil Count 8.58 10^3/uL (1.2-6.7)
[2023-11-15 15:46] LABS: PTT Activated 21.5 sec (23.6-32.8); Prothrombin Time 9.8 sec (9.1-11.1)
[2023-11-15 15:52] LABS: ALT 28 U/L (14-59); AST 14 U/L (15-37); Alkaline Phosphatase 74 U/L (46-116); Anion Gap 6.4 mmol/L (3-11); BUN 16 mg/dL (7-18); Bilirubin, Total 0.3 mg/dL (0.2-1.0); CO2 30.6 mmol/L (21.0-32.0); CREATININE 0.8 mg/dL (0.55-1.02); Calcium 8.4 mg/dL (8.5-10.1); Chloride 103 mmol/L (98-107); Glucose 121 mg/dL (74-106); Magnesium 1.9 mg/dL (1.8-2.4); Potassium 3.6 mmol/L (3.5-5.1); Sodium 140 mmol/L (136-145); Total Protein 7.8 g/dL (6.4-8.2)
[2023-11-15 16:04] LABS: D-Dimer 1709 ng/mlFEU (<500)
--- NOTE | 2023-11-15 16:47 | NUR.NOTE ---
Request for outpatient US/ bilateral DVT US for bilateral leg swelling L>R. To follow up in the ED, to be done 11/16/23 Nursing Note:
[2023-11-15] MEDS: Apixaban 5 MG TAB 10 MG PO ×2 (16:49)
[2023-11-15 16:51] VITALS: BP 196/90; PULSE 100; RESP 18; TEMP 36.6; O2SAT 93
== END 2023-11-15 16:49 | disposition home or self-care (01) ==
PROVIDERS: Emergency Provider Emergency Medicine; PCP Physician Assistant Medical
DX: R22.43 Localized swelling, mass and lump, lower limb, bilateral (principal); R79.89 Other specified abnormal findings of blood chemistry; Z86.718 Personal history of other venous thrombosis and embolism
CPT/HCPCS: 36415; 80053; 99283; 83735; 85025; 85379; 85610; 85730

== ENCOUNTER → 2023-11-17 01:25 | Outpatient (CLI) | payer MEDICAID, SELFPAY ==
--- NOTE | 2023-11-17 10:30 | DI.US_ITS ---
Exam(s) US EXTREMITY VENOUS BI EXAM: US EXTREMITY VENOUS BI CLINICAL HISTORY: BILAT LEG SWELLING,. TECHNIQUE: Bilateral lower extremity venous ultrasound performed using grayscale, color-flow, and sp ectral Doppler analysis. COMPARISON: No exams were available for comparison FINDINGS: The right common femoral, femoral and popliteal veins demonstrate normal compressibility, augmentatio n, and color Doppler. The posterior tibial and peroneal veins are patent. The saphenofemoral junctio n is unremarkable. There is no evidence of a Bender's cyst. The soft tissues are unremarkable. The left common femoral, femoral and popliteal veins demonstrate normal compressibility, augmentation , and color Doppler. A posterior tibialis veins could not be well evaluated distally secondary to the edema. The saphenofemoral junction is unremarkable. There is no evidence of a Bender's cyst. There is edema in the left lower extremity. IMPRESSION: 1. No evidence of a right lower extremity DVT. 2. No evidence of a left lower extremity DVT. DATA REPOSITORY:
== END ==
PROVIDERS: PCP Physician Assistant Medical; Visit Provider Emergency Medicine
DX: R22.43 Localized swelling, mass and lump, lower limb, bilateral (principal)
CPT/HCPCS: 93970

== ENCOUNTER 2023-11-17 11:11 | Emergency (ER) | payer MEDICAID, SELFPAY ==
[2023-11-17 11:16] VITALS: BP 175/92; PULSE 90; RESP 18; TEMP 36.8; O2SAT 97
--- NOTE | 2023-11-17 11:22 | W.ED.GENAD ---
Discharge Plan Disposition Patient Disposition: Home Condition: Stable Discharge Details Clinical Impression: Leg swelling, Encounter to discuss test results Primary Care Provider: Nestor Blackwell ED Provider: Brooklyn Mcdaniel Home Meds and New Rx's Prescriptions: Continued celecoxib [Celebrex] 200 mg capsule 200 mg PO BID acetylcysteine [NAC] 600 mg capsule 600 mg PO DAILY duloxetine [Cymbalta] 30 mg capsule,delayed release(DR/EC) 30 mg PO DAILY multivitamin Capsule 1 cap PO BID omega-3 fatty acids Capsule 1 cap PO BID vitamin D3-vitamin K2 250 mcg (10,000 unit)-45 mcg Capsule 1 cap PO DAILY Discharge Instructions Instructions: Heart Healthy Diet, Swelling Additional Instructions: At this time there is no blood clots noted in your bilateral lower extremities. No DVTs. Please follow-up with your primary care provider. Walk daily, use compression socks, practice a heart healthy diet. Return to the ER for any chest pain, shortness of breath, fever vomiting. Follow up with primary care provider in 3-5 days or as previously scheduled to further discuss your care. Return to ED sooner if any worsening or concerns. Thank you for allowing us to care for you today. Stand Alone Forms: Work Release Referrals: Nestor Blackwell PA [Primary Care Provider] - 2 weeks (Call for ER follow up) HPI General Mode of arrival: ambulatory. Date/Time Provider Initiated Documentation: 11/17/23 11:22. Limitations to Documentation: no limitations. Information obtained by: patient. HPI Narrative: 53-year-old female presents to the ER with a chief complaint of needing ultrasound results. Patient was seen here on Thursday night and had a venous ultrasound done of her left lower extremity. Negative for DVT at this time. She does report increased swelling to her bilateral ankles, pain in her left calf. She reports that she has had increased weight loss. I did encourage her to do a little bit of walking daily, compression socks and to follow-up with her PCP. She is not having any chest pain shortness of breath at this time. Does have a past medical history of hyperlipidemia, obesity. She is concerned due to family history of CHF. No other complaints or associated symptoms at this time. Related Data Home Medications Medication Instructions Recorded Confirmed multivitamin 1 cap PO BID 10/09/20 11/17/23 omega-3 fatty acids 1 cap PO BID 10/09/20 11/17/23 vitamin D3 250 mcg (10,000 1 cap PO DAILY 10/09/20 11/17/23 unit)-vitamin K2 45 mcg capsule acetylcysteine 600 mg capsule (NAC) 600 mg PO DAILY 10/03/22 11/17/23 celecoxib 200 mg capsule (Celebrex) 200 mg PO BID 10/03/22 11/17/23 duloxetine 30 mg capsule,delayed 30 mg PO DAILY 10/03/22 11/17/23 release (Cymbalta) Allergies Allergy/AdvReac Type Severity Reaction Status Date / Time simvastatin [From Zocor] Allergy Intermediate Other (See Verified 11/17/23 11:22 Comment) General Stated Complaint: Recheck TESFAYE: 5 Exam Const General: cooperative, healthy appearing and well hydrated Nutritional Appearance: obese Orientation: alert, awake and oriented x3 Extrem Right lower extremity: full ROM and edema Details: non-pitting Left lower extremity: full ROM and edema Details: non-pitting Course Vital Signs Vital signs: Vital Signs Temperature 36.8 C 11/17/23 11:16 Pulse 90 11/17/23 11:16 Respiratory Rate 18 11/17/23 11:16 Blood Pressure 175/92 H 11/17/23 11:16 Pulse Oximetry 97 11/17/23 11:16 Temperature 36.8 C 11/17/23 11:16 Temperature Source Temporal Artery Scan 11/17/23 11:16 Pulse 90 11/17/23 11:16 Respiratory Rate 18 11/17/23 11:16 Respiratory Effort Normal, Non-Labored 11/17/23 11:22 Blood Pressure 175/92 H 11/17/23 11:16 Blood Pressure Position Sitting 11/17/23 11:16 Pulse Oximetry 97 11/17/23 11:16 Oxygen Delivery Method Room Air 11/17/23 11:16 Oxygen Flow Rate 0 11/17/23 11:16 Pain Level 0 11/17/23 11:16 Medical Decision Making 53-year-old female presents to the ER with a chief complaint of needing ultrasound results. Patient was seen here on Thursday night and had a venous ultrasound done of her left lower extremity. Negative for DVT at this time. She does report increased swelling to her bilateral ankles, pain in her left calf. She reports that she has had increased weight loss. I did encourage her to do a little bit of walking daily, compression socks and to follow-up with her PCP. She is not having any chest pain shortness of breath at this time. Does have a past medical history of hyperlipidemia, obesity. She is concerned due to family history of CHF. No other complaints or associated symptoms at this time. Discussed preliminary results with patient which is negative for DVT. Discussed follow-up care and home care verbalized understanding. Patient discharged instructions to follow-up with her PCP for further discussion and care. This text was generated using [employer] system, please disregard any oddities of phrase or misspellings. Quality:SDOH Health Related Social Needs: No Data to Display PFSH All Active Problems (Updated 11/17/23 @ 11:31 by Brooklyn Mcdaniel NP) Encounter to discuss test results (Acute) Leg swelling (Acute) Posterior tibial tendon dysfunction, right (Acute) Polyarthralgia (Acute) Superficial thrombosis of left lower extremity (Acute) Arm pain, left (Acute) Right ankle swelling (Acute) Right ankle pain (Acute) Medical History DVT (deep vein thrombosis) in Hyperlipidemia Polyarthralgia Surgical History History of adenectomy Social History Smoking/Tobacco Use Status: Never Smoking risk assessment performed?: Yes Alcohol Intake: never Drug use: Never Substance use type: does not use Housing: house Do you feel safe at home: Yes Do you feel safe in your relationship?: Yes
== END 2023-11-17 11:35 | disposition home or self-care (01) ==
PROVIDERS: Emergency Provider Registered Nurse Emergency; PCP Physician Assistant Medical
DX: R22.43 Localized swelling, mass and lump, lower limb, bilateral (principal); E78.5 Hyperlipidemia, unspecified; Z86.718 Personal history of other venous thrombosis and embolism
CPT/HCPCS: 99283

== ENCOUNTER 2023-12-09 15:16 | Outpatient (REF) | payer BC, MEDICAID, SELFPAY ==
[2023-12-09 16:01] LABS: Calculated LDL 172 mg/dL (<100); Cholesterol 273 mg/dL (<200); HDL Cholesterol 78 mg/dL (40-60); Triglyceride 116 mg/dL (<150)
[2023-12-09 16:06] LABS: Hemoglobin A1C 6.1 % (<5.7)
[2023-12-09 16:26] LABS: Uric Acid 6.7 mg/dL (2.6-6.0)
== END 2023-12-09 15:17 | disposition home or self-care (01) ==
LOC: NCHCN 15:16
PROVIDERS: PCP Physician Assistant Medical; Visit Provider Physician Assistant Medical
DX: R73.03 Prediabetes (principal); R60.0 Localized edema; E66.9 Obesity, unspecified; E79.0 Hyperuricemia without signs of inflammatory arthritis and tophaceous disease
CPT/HCPCS: 80061; 83036; 84550

== ENCOUNTER 2023-12-14 12:29 | Outpatient (CLI) | payer BC, MEDICAID, SELFPAY ==
[2023-12-14 08:22] LABS: Hemoglobin A1C 6.3 % (<5.7)
[2023-12-14 08:40] LABS: Calculated LDL 176 mg/dL (<100); Cholesterol 263 mg/dL (<200); HDL Cholesterol 79 mg/dL (40-60); Triglyceride 40 mg/dL (<150)
[2023-12-14 17:49] LABS: Dexamethasone Suppression 1.4 ug/dL (See Note)
== END 2023-12-14 12:30 | disposition home or self-care (01) ==
LOC: LBO 12:30
PROVIDERS: PCP Physician Assistant Medical; Visit Provider Physician Assistant Medical
DX: E66.9 Obesity, unspecified (principal); E78.5 Hyperlipidemia, unspecified; R73.03 Prediabetes
CPT/HCPCS: 36415; 80061; 82533; 83036

== ENCOUNTER 2024-01-25 20:55 | Outpatient (REF) | payer BC, MEDICAID, SELFPAY ==
[2024-01-25 21:22] LABS: BUN 11 mg/dL (7-18); CREATININE 0.9 mg/dL (0.55-1.02); Calcium 9.3 mg/dL (8.5-10.1); Chloride 102 mmol/L (98-107); Estimated GFR 76.92 (mL/min/1.73m2); Glucose 130 mg/dL (74-106); Potassium 3.8 mmol/L (3.5-5.1); Sodium 138 mmol/L (136-145); Uric Acid 4.5 mg/dL (2.6-6.0)
== END 2024-01-25 20:56 | disposition home or self-care (01) ==
LOC: NCHCN 20:55
PROVIDERS: PCP Physician Assistant Medical; Visit Provider Physician Assistant Medical
DX: E79.0 Hyperuricemia without signs of inflammatory arthritis and tophaceous disease (principal)
CPT/HCPCS: 80048; 84550